=== PATIENT | male | born 1980 | race Two or more races ===

== ENCOUNTER 2023-03-08 13:43 | Emergency (ER) | payer OTHER ==
[~2023-03-08] VITALS: Ht 180.3 cm; Wt 90.7 kg
[2023-03-08] MEDS ORDERED: PAXIL30 MG (14:36)
== END 2023-03-08 16:03 | disposition home or self-care (01) ==
LOC: ER 13:43
DX: J32.8 Other chronic sinusitis (principal)

== ENCOUNTER 2023-11-04 22:01 | Emergency (ER) | payer OTHER ==
[~2023-11-04] VITALS: Ht 180.3 cm; Wt 95.3 kg
[~2023-11-04 22:01] MED LIST: PAXIL30 MG
[2023-11-04] MEDS ORDERED: ENALAPRILAT DIHYDRATE 1.25 MG/ML VIAL IV ONE (23:45)
[2023-11-05 00:17] LABS: URINE APPEARANCE Clear; URINE BILIRRUBIN Negative (NEGATIVE); URINE BLOOD Negative; URINE COLOR Yellow; URINE GLUCOSE Negative (NEGATIVE); URINE LEUKOCYTE Negative; URINE NITRATE Negative; URINE PROTEIN Negative (NEGATIVE); URINE UROBILINOGEN 0.2 E.U./dl
[2023-11-05 00:23] LABS: HEMATOCRIT 42.3 % (39.0-48.0); HEMOGLOBIN 15.5 g/dL (13-16.00); MEAN CELL VOLUME 83.3 fL (80.0-100.00); MEAN CORPUSCULAR HEMOGLOBIN 30.6 pg (27.00-32.0); MEAN CORPUSCULAR HGB CONC 36.8 g/dl (32.0-36.0); PLATELET COUNT 273 K/uL (150-450); RED BLOOD COUNT 5.07 M/uL (4.00-6.00); RED CELL DISTRIBUTION WIDTH 13.6 % (11.5-14.5)
[2023-11-05 00:36] LABS: ALBUMIN 4.2 gm/dL (3.4-5.0); BILIRUBIN TOTAL 1.08 mg/dL (0.3-1.2); CREATININE SERUM 0.83 mg/dL (0.70-1.30); GFR 100.65; POTASSIUM 3.96 mEq/L (3.5-5.1)
[2023-11-05 00:50] LABS: URINE BACTERIA 1.2 uL (0.0-1933); URINE EPITHELIAL CELLS 0.1 uL (0.0-38.8); URINE RBC 1.1 uL (0.0-20.8); URINE WBC 0.6 uL (0.0-23.2)
[2023-11-05 00:53] LABS: GLOBULINA 3.5 G/DL (2.4-3.5); TOTAL PROTEIN 7.7 gm/dL (6.4-8.2)
[2023-11-05] MEDS ORDERED: ZESTRIL20 MG PO (02:18)
== END 2023-11-05 01:03 | disposition home or self-care (01) ==
LOC: ER 22:02
PROVIDERS: Emergency Medicine
DX: I10 Essential (primary) hypertension (principal)

== ENCOUNTER 2023-11-19 13:03 | Emergency (ER) | payer OTHER ==
[~2023-11-19] VITALS: Ht 180.3 cm; Wt 95.3 kg
[~2023-11-19 13:03] MED LIST changes: +ZESTRIL20 MG PO
[2023-11-19] MEDS ORDERED: FAMOTIDINE/PF 20 MG/2 ML VIAL IV PUSH STA (16:27)
[2023-11-19] MEDS ORDERED: KETOROLAC TROMETHAMINE 15 MG VIAL IV STA (16:28)
== END 2023-11-19 19:12 | disposition home or self-care (01) ==
LOC: ER 13:04
DX: M94.0 Chondrocostal junction syndrome [Tietze] (principal)